=== PATIENT | female | born 1995 | race African-American/Black ===

== ENCOUNTER 2017-01-05 20:04 | Emergency (ER) | payer OTHER ==
--- NOTE | ~2017-01-05 | CR58 ---
[facility] A Service [facility] RADIOLOGY TEXT RESULTS PATIENT: BRYSON DICKINSON LOCATION: SED : [birth year] UNIT #: [id number] AGE: [address]: Rupert Rapp PAC SEX: F ORDER DR: [id number] [address] [address] [id number] MR#: [id number] Acc #: [id number] NAME: BRYSON DICKINSON : 1995 SEX: F STUDY DATE/TIME: 01/05/2017 21:07 UNIT: SED ROOM: STUDY DESCRIPTION: CR Cervical Spine 2 or 3 Views Attending Physician: Rupert Rapp P.A.-C. Ordering Physician: Rupert Rapp P.A.-C. Primary Care Physician: No Primary Care Physician MEDICAL IMAGING REPORT This report is preliminary unless electronic signature is present. EXAM Cervical spine series dated 01/05/2017 COMPARISON None. HISTORY Neck pain and low back pain for the last 3 days. TECHNIQUE 3 views of the cervical spine were obtained. Frontal, lateral, open-mouth C1-2 views are obtained. FINDINGS AP and lateral projections of the cervical spine show satisfactory preservation of the cervical lordosis. The cervical soft tissues are normal. All anterior and posterior elements in the cervical area are anatomically normal without identifiable fracture, dislocation, malignant lytic or sclerotic change, or arthritis. There is no congenital defect apparent. IMPRESSION Normal cervical spine. Dictated by... Apolonia Abarca M.D. THIS IS AN ELECTRONICALLY VERIFIED REPORT Apolonia Abarca M.D. at 01/08/2017 3:35 PM CPR/aa [facility] A Service [facility] RADIOLOGY TEXT RESULTS PATIENT: BRYSON DICKINSON LOCATION: SED : [birth year] UNIT #: [id number] AGE: [address]: Rupert Rapp PAC SEX: F ORDER DR: TD: 01/06/2017 11:11 JOB #: [id number] MEDICAL IMAGING REPORT Page 1 of 1
--- NOTE | ~2017-01-05 | CR181 ---
[facility] A Service [facility] RADIOLOGY TEXT RESULTS PATIENT: BRYSON DICKINSON LOCATION: SED : [birth year] UNIT #: [id number] AGE: [address]: Rupert Rapp PAC SEX: F ORDER DR: [id number] [address] [address] [id number] E MR#: [id number] Acc #: [id number] NAME: BRYSON DICKINSON : 1995 SEX: F STUDY DATE/TIME: 01/05/2017 21:07 UNIT: SED ROOM: STUDY DESCRIPTION: CR Lumbar Spine 2 or 3 Views Attending Physician: Rupert Rapp P.A.-C. Ordering Physician: Rupert Rapp P.A.-C. Primary Care Physician: Primary Care Physician No MEDICAL IMAGING REPORT This report is preliminary unless electronic signature is present. EXAM Lumbar spine series dated 01/05/2017 COMPARISON None HISTORY Migraines, neck and lower back pain for the last 3 days. FINDINGS Three views of the lumbar spine were obtained. AP and lateral projections of the lumbar segment show good mineralization of both anterior and posterior elements. They are all anatomically normal without indication of fracture, dislocation, or malignant change of a sclerotic or lytic type. There is no congenital defect noted. The sacroiliac joints are normal. IMPRESSION Normal lumbar spine. Dictated by... Apolonia Abarca M.D. THIS IS AN ELECTRONICALLY VERIFIED REPORT Apolonia Abarca M.D. at 01/08/2017 3:35 PM CPR/patel TD: 01/06/2017 10:47 JOB #: [id number] MEDICAL IMAGING REPORT [facility] A Service [facility] RADIOLOGY TEXT RESULTS PATIENT: BRYSON DICKINSON LOCATION: SED : [birth year] UNIT #: [id number] AGE: [address]: Rupert Rapp PAC SEX: F ORDER DR: Page 1 of 1
[~2017-01-05 20:04] MED LIST: PHENERGAN25 M1 PO
[2017-01-05] MEDS ORDERED: DEPO-PROVE150 MG/1 M (20:37)
== END 2017-01-05 22:42 | disposition home or self-care (01) ==
LOC: SED 20:04
DX: S16.1XXA Strain of muscle, fascia and tendon at neck level, initial encounter (principal); S39.012A Strain of muscle, fascia and tendon of lower back, initial encounter; R51 Headache; F17.210 Nicotine dependence, cigarettes, uncomplicated; Z88.8 Allergy status to other drugs, medicaments and biological substances; V43.52XA Car driver injured in collision with other type car in traffic accident, initial encounter
CPT/HCPCS: 72040; 72100; 99284